=== PATIENT | female | born 1950 | race Caucasian/White ===

== ENCOUNTER 2023-11-11 05:14 | Emergency (ER) | payer MEDICARE ==
[~2023-11-11] VITALS: Ht 165.1 cm; Wt 54.4 kg
[2023-11-11] MEDS ORDERED: ACET-3117 PO (05:37)
[2023-11-11] MEDS ORDERED: CALC500T52 PO (05:37)
[2023-11-11] MEDS ORDERED: AMLO2.5T4 PO (05:37)
[2023-11-11] MEDS ORDERED: CHOL400T28 PO (05:37)
[2023-11-11] MEDS ORDERED: ALBU8.5H8 IH (05:37)
[2023-11-11] MEDS ORDERED: BENZ1LOZ58 MM (05:37)
[2023-11-11] MEDS ORDERED: ACET325T53 PO (05:37)
[2023-11-11] MEDS ORDERED: LORA0.5T48 PO (05:37)
[2023-11-11] MEDS ORDERED: methylphenidate PO (05:37)
[2023-11-11] MEDS ORDERED: APIX2.5T PO (05:37)
[2023-11-11 06:08] LABS: BASOPHILS # (AUTO) 0.1 K/UL (0.0-0.2); BASOPHILS % (AUTO) 0.8 % (0.0-2.0); EOSINOPHILS # (AUTO) 0.1 K/uL (0.0-0.7); EOSINOPHILS % (AUTO) 0.7 % (0.0-7.0); HEMATOCRIT 31.3 % (31.2-41.9); HEMOGLOBIN 10.9 g/dL (10.9-14.3); LYMPHOCYTES # (AUTO) 2.4 K/uL (0.8-4.8); LYMPHOCYTES % (AUTO) 24.6 % (20.5-51.5); MEAN CORPUSCULAR HEMOGLOBIN 29.4 uug (24.7-32.8); MEAN CORPUSCULAR HGB CONC 35 g/dL (32.3-35.6); MEAN CORPUSCULAR VOLUME 84.6 fL (75.5-95.3); MONOCYTES # (AUTO) 0.6 K/uL (0.1-1.30); MONOCYTES % (AUTO) 6.4 % (0.0-11.0); NEUTROPHILS # (AUTO) 6.5 K/uL (1.8-8.9); NEUTROPHILS % (AUTO) 67.5 % (38.5-71.5); PLATELET COUNT (AUTO) 266 K/uL (179-408); RED CELL DISTRIBUTION WIDTH 14.5 % (12.3-17.7); WHITE BLOOD COUNT (AUTO) 9.6 K/uL (3.8-11.8)
[2023-11-11] MEDS ORDERED: LORAZEPAM 2 MG/1 ML VIAL IV ONE (06:15)
[2023-11-11 06:16] LABS: CALCIUM 9.4 mg/dL (8.5-10.1); CARBON DIOXIDE 30 mmol/L (21-32); CHLORIDE 108 mmol/L (98-107); GLUCOSE 92 mg/dL (74-106); POTASSIUM 3.3 mmol/L (3.5-5.1); SODIUM SERUM 146 mmol/L (136-145); UREA NITROGEN, BLOOD 28 mg/dL (7-18)
[2023-11-11] MEDS ORDERED: LORAZEPAM 2 MG/1 ML VIAL ONE ×2 (06:16→09:33)
[2023-11-11 06:22] LABS: DIFFERENTIAL COMMENT 1
[2023-11-11 06:29] LABS: ALANINE AMINOTRANSFERASE 13 U/L (14-59); ALBUMIN 3.1 g/dL (3.4-5.0); ALKALINE PHOSPHATASE 69 U/L (50-136); ASPARTATE AMINOTRANSFERASE 6 U/L (15-37); BILIRUBIN,TOTAL 0.5 mg/dL (0.2-1.0); LIPASE 63 U/L (16-77); NT-PRO BNP 137 pg/mL (0-125); TOTAL PROTEIN, SERUM 6.5 g/dL (6.4-8.2)
[2023-11-11] MEDS: OCTREOTIDE ACETATE 100 MCG/1 MLVIAL IV ONE (06:29)
[2023-11-11] MEDS: LORAZEPAM 2 MG/1 ML VIAL IV ONE ×2 (06:29→09:37)
[2023-11-11] MEDS: PANTOPRAZOLE SODIUM IV 40 MG in IV DEXTROSE 5% 100 ML IV ONE (06:29)
[2023-11-11 07:00] LABS: ACETAMINOPHEN < 2.0 ug/mL (10-30)
[2023-11-11 07:01] LABS: ETHANOL < 3 MG/DL (0-10)
[2023-11-11] MEDS: IV NORMAL SALINE 1000 ML BAG IV ONE (08:00)
[2023-11-11] MEDS ORDERED: LIDOCAINE 2%-EPI 1:100,000 20 ML VIAL ONE (09:32)
[2023-11-11] MEDS: LIDOCAINE 2%-EPI 1:100,000 20 ML VIAL IJ ONE (09:37)
[2023-11-11 12:34] VITALS: BP 151/77; O2SAT 98
== END 2023-11-11 12:35 | disposition home or self-care (01) ==
LOC: ER 05:25
DX: K91.840 Postprocedural hemorrhage of a digestive system organ or structure following a digestive system procedure (principal); G20.A1 Parkinson's disease without dyskinesia, without mention of fluctuations; Z79.899 Other long term (current) drug therapy; Z88.1 Allergy status to other antibiotic agents
CPT/HCPCS: 12011; 36415; 80053; 80299; 80320; 83690; 83880; 84484; 85025; 85610; 86850; 86900; 86901; 96361; 96374; 99285; C9113; J2060; J7040; A4606; A4663; G0480

== ENCOUNTER 2024-02-10 09:55 | Inpatient (IN) | payer MEDICARE ==
[~2024-02-10] VITALS: Ht 165.1 cm; Wt 49.9 kg
[~2024-02-10 09:55] MED LIST: ACET-3117 PO; ACET325T53 PO; ALBU8.5H8 IH; AMLO2.5T4 PO; APIX2.5T PO; BENZ1LOZ58 MM; CALC500T52 PO; CHOL400T28 PO; LORA0.5T48 PO; methylphenidate PO
[2024-02-10 10:47] LABS: *BILIRUBIN,URIN NEGATIVE (NEGATIVE); *BLOOD, URINE NEGATIVE (NEGATIVE); *CLARITY,URINE CLEAR (CLEAR); *COLOR,URINE YELLOW (YELLOW); *KETONES,URINE TRACE (NEGATIVE); *PROTEIN,URINE NEGATIVE (NEGATIVE); *UROBILINOGEN,URINE 0.2 E.U./dl (NORMAL); LEUKOCYTE ESTERASE ,URINE TRACE (NEGATIVE); NITRITE, URINE NEGATIVE (NEGATIVE); UGLUCOSE NEGATIVE (NEGATIVE)
[2024-02-10 10:58] LABS: *AMPHETAMINE, URINE NEGATIVE (NEGATIVE); *BARBITURATE, URINE NEGATIVE (NEGATIVE); *BENZODIAZEPINE, URINE NEGATIVE (NEGATIVE); *CANNABINOID, URINE NEGATIVE (NEGATIVE); *COCCAINE, URINE NEGATIVE (NEGATIVE); *OPIATE, URINE NEGATIVE (NEGATIVE); *PHENCYCLIDINE SCREEN,URINE NEGATIVE (NEGATIVE)
[2024-02-10 11:13] LABS: BASOPHILS % (AUTO) 0.6 % (0.0-2.0); EOSINOPHILS # (AUTO) 0.1 K/uL (0.0-0.7); HEMATOCRIT 35.4 % (31.2-41.9); HEMOGLOBIN 11.6 g/dL (10.9-14.3); LYMPHOCYTES % (AUTO) 24.6 % (20.5-51.5); MEAN CORPUSCULAR HGB CONC 33 g/dL (32.3-35.6); MEAN CORPUSCULAR VOLUME 88.3 fL (75.5-95.3); MONOCYTES # (AUTO) 0.7 K/uL (0.1-1.30); MONOCYTES % (AUTO) 7.9 % (0.0-11.0); NEUTROPHILS # (AUTO) 5.4 K/uL (1.8-8.9); NEUTROPHILS % (AUTO) 65.9 % (38.5-71.5); PLATELET COUNT (AUTO) 249 K/uL (179-408); RED BLOOD CELL COUNT(AUTO) 4.01 MIL/uL (3.63-4.92); RED CELL DISTRIBUTION WIDTH 14.3 % (12.3-17.7); WHITE BLOOD COUNT (AUTO) 8.2 K/uL (3.8-11.8)
[2024-02-10 11:17] LABS: DIFFERENTIAL COMMENT 1
[2024-02-10 11:19] LABS: CALCIUM 9.5 mg/dL (8.5-10.1); CARBON DIOXIDE 34 mmol/L (21-32); CHLORIDE 107 mmol/L (98-107); CREATININE 1.2 mg/dL (0.6-1.3); GLUCOSE 88 mg/dL (74-106); POTASSIUM 4.3 mmol/L (3.5-5.1); SODIUM SERUM 143 mmol/L (136-145); UREA NITROGEN, BLOOD 24 mg/dL (7-18)
[2024-02-10 11:20] LABS: AMMONIA < 10 umol/L (11-32)
[2024-02-10] MEDS ORDERED: HYDR50TA62 PO (11:23)
[2024-02-10] MEDS ORDERED: MAGN400O6 PO (11:23)
[2024-02-10] MEDS ORDERED: FAMO20TA8 PO (11:23)
[2024-02-10] MEDS ORDERED: CYAN250010 PO (11:23)
[2024-02-10] MEDS ORDERED: POLY250017 MC (11:23)
[2024-02-10] MEDS ORDERED: METH20TA50 PO ×2 (11:23→15:23)
[2024-02-10] MEDS ORDERED: ACET1TAB23 PO (11:23)
[2024-02-10] MEDS ORDERED: HYDR-3972 PO (11:23)
[2024-02-10] MEDS ORDERED: FERR325T30 PO (11:23)
[2024-02-10 11:25] LABS: ALANINE AMINOTRANSFERASE 34 U/L (14-59); ALBUMIN 3.4 g/dL (3.4-5.0); ALKALINE PHOSPHATASE 73 U/L (50-136); ASPARTATE AMINOTRANSFERASE 19 U/L (15-37); BILIRUBIN,DIRECT 0.1 mg/dL (0.0-0.2); BILIRUBIN,TOTAL 0.3 mg/dL (0.2-1.0); TOTAL PROTEIN, SERUM 6.8 g/dL (6.4-8.2)
[2024-02-10 11:27] LABS: FENTANYL, URINE NEGATIVE (NEGATIVE)
[2024-02-10 11:31] LABS: THYROID STIMULATING HORMONE 1.155 mIU/mL (0.358-3.740)
[2024-02-10 11:33] LABS: ETHANOL < 3 MG/DL (0-10)
[2024-02-10] MEDS ORDERED: FOSFOMYCIN TROMETHAMINE 3 GM PACKET ONE (13:17)
[2024-02-10] MEDS: FOSFOMYCIN TROMETHAMINE 3 GM PACKET PO ONE (13:26)
[2024-02-10] MEDS ORDERED: CYAN100085 PO (15:23)
[2024-02-10] MEDS ORDERED: HYDR10TA37 PO (15:28)
[2024-02-10] MEDS ORDERED: POLY17PO4 PO (15:28)
[2024-02-10 15:44] LABS: BACTERIA,URINE FEW /HPF (NONE SEEN); RBC,URINE 0-3 /HPF (0-3); SQUAMOUS EPITHELIAL CELL,UR FEW /HPF (NONE SEEN); URINE AMORPHOUS URATE MANY /HPF; WBC,URINE 0-3 /HPF (0-3)
[2024-02-10 16:25] VITALS: BP 150/57; TEMP 98.1; O2SAT 98
[2024-02-10 19:00] VITALS: BP 107/75; TEMP 98.2; O2SAT 95
[2024-02-10] MEDS ORDERED: hydrOXYzine HCL 10 MG TABLET PO PRN (20:30)
[2024-02-10] MEDS ORDERED: ALBUTEROL SULFATE 8 GM HFA.AER.AD IH PRN (20:30)
[2024-02-10] MEDS ORDERED: LORAZEPAM 0.5 MG TABLET PO PRN (20:30)
[2024-02-10] MEDS ORDERED: MAGNESIUM HYDROXIDE 30 ML LIQUID UDC PO PRN (20:30)
[2024-02-10] MEDS ORDERED: ACETAMINOPHEN 325 MG TABLET-SA PATIENTS-PAIN ONLY PO PRN (20:30)
[2024-02-10] MEDS ORDERED: CEFTRIAXONE 1 G VIAL ONE (21:56)
[2024-02-10] MEDS: CEFTRIAXONE 1 G VIAL IM SCH (22:27)
[2024-02-11 06:00] VITALS: BP 123/68; TEMP 97.8; O2SAT 97
[2024-02-11] MEDS ORDERED: ACETAMINOPHEN 325 MG TABLET PO PRN (07:00)
[2024-02-11] MEDS ORDERED: ALBUTEROL SULFATE 2.5 MG/3 ML NEBU NEB PRN (07:15)
[2024-02-11] MEDS: FERROUS SULFATE 325 MG TABEC PO SCH (09:00)
[2024-02-11] MEDS: APIXABAN 2.5 MG TABLET PO SCH (09:02)
[2024-02-11] MEDS: AMLODIPINE 2.5 MG TABLET PO SCH (09:03)
[2024-02-11] MEDS: CHOLECALCIFEROL 400 UNITS TABLET PO SCH (09:03)
[2024-02-11] MEDS: CALCIUM CARBONATE 500 MG TABLET PO SCH (09:03)
[2024-02-11] MEDS: MIRALAX 17 GM POWD.PACK PO SCH (09:03)
[2024-02-11] MEDS: FAMOTIDINE 20 MG TABLET PO SCH (09:03)
[2024-02-11 12:00] VITALS: BP 139/70; TEMP 98.2; O2SAT 99
[2024-02-11 16:15] VITALS: BP 141/70; TEMP 97.8; O2SAT 96
[2024-02-11 20:51] VITALS: BP 115/61; TEMP 97.8; O2SAT 94
[2024-02-12 02:00] VITALS: BP 110/62; TEMP 97.7; O2SAT 96
[2024-02-12 04:00] VITALS: BP 119/61; TEMP 98.2; O2SAT 94
[2024-02-12 07:13] LABS: BASOPHILS % (AUTO) 0.4 % (0.0-2.0); EOSINOPHILS # (AUTO) 0.1 K/uL (0.0-0.7); EOSINOPHILS % (AUTO) 1.9 % (0.0-7.0); HEMATOCRIT 31.9 % (31.2-41.9); HEMOGLOBIN 10.9 g/dL (10.9-14.3); LYMPHOCYTES # (AUTO) 2.2 K/uL (0.8-4.8); LYMPHOCYTES % (AUTO) 36.7 % (20.5-51.5); MEAN CORPUSCULAR HEMOGLOBIN 29.7 uug (24.7-32.8); MEAN CORPUSCULAR HGB CONC 34 g/dL (32.3-35.6); MEAN CORPUSCULAR VOLUME 87.2 fL (75.5-95.3); MONOCYTES # (AUTO) 0.5 K/uL (0.1-1.30); MONOCYTES % (AUTO) 8.9 % (0.0-11.0); NEUTROPHILS # (AUTO) 3.1 K/uL (1.8-8.9); NEUTROPHILS % (AUTO) 52.1 % (38.5-71.5); PLATELET COUNT (AUTO) 220 K/uL (179-408); RED BLOOD CELL COUNT(AUTO) 3.66 MIL/uL (3.63-4.92); RED CELL DISTRIBUTION WIDTH 13.9 % (12.3-17.7); WHITE BLOOD COUNT (AUTO) 5.9 K/uL (3.8-11.8)
[2024-02-12 07:16] LABS: DIFFERENTIAL COMMENT 1
[2024-02-12 07:37] LABS: CALCIUM 8.9 mg/dL (8.5-10.1); CARBON DIOXIDE 30 mmol/L (21-32); CHLORIDE 108 mmol/L (98-107); GLUCOSE 79 mg/dL (74-106); PHOSPHOROUS 3.5 mg/dL (2.5-4.9); POTASSIUM 3.8 mmol/L (3.5-5.1); SODIUM SERUM 142 mmol/L (136-145); UREA NITROGEN, BLOOD 20 mg/dL (7-18)
[2024-02-12 11:54] VITALS: BP 129/64; TEMP 98.4; O2SAT 97
[2024-02-12 16:22] VITALS: BP 137/69; TEMP 98.4; O2SAT 99
[2024-02-12] MEDS: CEFTRIAXONE 1 G in IV DEXTROSE 5% 50 ML IV SCH (20:47)
[2024-02-13 06:50] VITALS: BP 144/72; TEMP 97.6; O2SAT 98
[2024-02-13 08:00] VITALS: BP 104/49; TEMP 98.1; O2SAT 98
[2024-02-13] MEDS: ENSURE ENLIVE (VAN) 240 ML LIQUID PO SCH (09:21)
[2024-02-13 12:00] VITALS: BP 146/62; TEMP 98.8; O2SAT 97
[2024-02-13] MEDS ORDERED: Lactose-Free Food PO (13:59)
[2024-02-13 16:00] VITALS: BP 145/63; TEMP 97.9; O2SAT 97
[2024-02-13] MEDS: HYDROCODONE/APAP 5-325MG TABLET PO PRN (16:24)
[2024-02-13 20:00] VITALS: BP 131/78; TEMP 97.4; O2SAT 95
[2024-02-14 09:40] VITALS: BP 150/69; TEMP 96.5; O2SAT 96
[2024-02-14 11:30] VITALS: BP 127/60; TEMP 98.1; O2SAT 97
[2024-02-14 16:00] VITALS: BP 116/62; TEMP 98.7; O2SAT 98
== END 2024-02-14 17:30 | DRG 689 ==
LOC: ER 09:55 → MEDSURG3 13:33
PROVIDERS: ADMIT Hospitalist; ATTEND Hospitalist
DX: N39.0 Urinary tract infection, site not specified (principal); G93.41 Metabolic encephalopathy; F02.811 Dementia in other diseases classified elsewhere, unspecified severity, with agitation; G20.A1 Parkinson's disease without dyskinesia, without mention of fluctuations; K59.00 Constipation, unspecified; I48.91 Unspecified atrial fibrillation; I10 Essential (primary) hypertension; Z88.1 Allergy status to other antibiotic agents; Z79.01 Long term (current) use of anticoagulants; J44.9 Chronic obstructive pulmonary disease, unspecified; G89.4 Chronic pain syndrome; M21.242 Flexion deformity, left finger joints; M21.241 Flexion deformity, right finger joints; Z96.82 Presence of neurostimulator
CPT/HCPCS: 36415; 70450; 71045; 82746; 83735; 84100; 84443; 85025; 93005; A4663; G0378; G0480; J0696; J3535